=== PATIENT | male | born 1990 | race Caucasian/White ===

== ENCOUNTER 2017-04-29 02:10 | Emergency (ER) | payer SELFPAY ==
[~2017-04-29] VITALS: Ht 175.3 cm; Wt 70.0 kg
[2017-04-29] MEDS ORDERED: MORPHINE SULFATE 4 MG/ML SYRINGE IM ONE (03:00)
[2017-04-29] MEDS ORDERED: ONDANSETRON HCL 4 MG/2 ML VIAL IM ONE (03:00)
[2017-04-29] MEDS ORDERED: BACITRACIN 0.9 GM PACKET OINTMENT TP ONE (03:15)
[2017-04-29] MEDS ORDERED: PERTUSS(ACELL),DIPH,TET VAC/PF 0.5 ML VIAL IM ONE (03:15)
[2017-04-29 04:48] VITALS: BP 129/77
== END 2017-04-29 05:07 | disposition home or self-care (01) ==
LOC: EMS 02:12
DX: S02.40FA Zygomatic fracture, left side, initial encounter for closed fracture (principal); S02.40DA Maxillary fracture, left side, initial encounter for closed fracture; S00.03XA Contusion of scalp, initial encounter; S00.83XA Contusion of other part of head, initial encounter; S10.93XA Contusion of unspecified part of neck, initial encounter; S40.012A Contusion of left shoulder, initial encounter; F15.90 Other stimulant use, unspecified, uncomplicated; F17.210 Nicotine dependence, cigarettes, uncomplicated; Y04.0XXA Assault by unarmed brawl or fight, initial encounter; Y93.89 Activity, other specified; Y92.89 Other specified places as the place of occurrence of the external cause; Y99.8 Other external cause status
CPT/HCPCS: 70450; 70486; 72070; 72100; 72125; 73030; 90471; 90715; 96372; 99284; 99406; J2270; J2405

== ENCOUNTER 2019-11-09 19:37 | Emergency (ER) | payer SELFPAY ==
[~2019-11-09] VITALS: Ht 167.6 cm; Wt 68.2 kg
[2019-11-09 22:22] LABS: APPEARANCE,URINE CLOUDY (CLEAR); GLUCOSE, URINE (UA) NEGATIVE (NEGATIVE); KETONES,URINE NEGATIVE (NEGATIVE); LEUKOCYTE ESTERASE ,URINE MODERATE (NEGATIVE); NITRATE,URINE NEGATIVE (NEGATIVE); OCCULT BLOOD,URINE NEGATIVE (NEGATIVE); PH,URINE 5.5 (5.0-8.0); PROTEIN,URINE NEGATIVE (NEGATIVE)
[2019-11-09 22:26] LABS: BILIRUBIN,URINE PRELIM. POSITIVE (NEGATIVE)
[2019-11-09 22:35] LABS: CALCIUM OXALATE CRYSTALS,UR Many /LPF (None Seen)
[2019-11-09 22:36] LABS: BACTERIA,URINE None Seen /HPF (None Seen); RBC,URINE None Seen /HPF (0-2)
[2019-11-09 22:37] LABS: AMORPHOUS SEDIMENT,UR Many /LPF (None Seen); SQUAMOUS EPITHELIAL CELL,UR Few /LPF (None Seen)
[2019-11-09 23:15] VITALS: BP 137/72
[2019-11-09] MEDS ORDERED: CefTRIAXone SODIUM 1 GM/VIAL IM ONE (23:15)
[2019-11-09] MEDS ORDERED: AZITHROMYCIN 250 MG TABLET PO ONE (23:15)
== END 2019-11-09 23:45 | disposition home or self-care (01) ==
LOC: EMS 19:43
DX: N48.1 Balanitis (principal); A64 Unspecified sexually transmitted disease; F15.90 Other stimulant use, unspecified, uncomplicated; F17.210 Nicotine dependence, cigarettes, uncomplicated
CPT/HCPCS: 81001; 96372; 99283; J0696